=== PATIENT | male | born 1945 | race Caucasian/White ===

== ENCOUNTER → 2019-04-04 09:57 | Outpatient (CLI) | payer MEDICARE | END | disposition home or self-care (01) | LOC: D.HCCARDIO 09:57 | PROVIDERS: ATTEND Internal Medicine Cardiovascular Disease | DX: I35.9 Nonrheumatic aortic valve disorder, unspecified (principal) ==

== ENCOUNTER → 2020-05-07 09:16 | Outpatient (CLI) | payer MEDICARE | END | disposition home or self-care (01) | LOC: D.HCCECHO 09:16 | PROVIDERS: ATTEND Internal Medicine Cardiovascular Disease | DX: I25.10 Atherosclerotic heart disease of native coronary artery without angina pectoris (principal) ==

== ENCOUNTER 2020-06-30 10:54 | Day surgery (SDC) | payer MEDICARE ==
[~2020-06-30] VITALS: Ht 185.4 cm; Wt 93.7 kg
--- NOTE | ~2020-06-30 | HEMODYNAMI ---
PATIENT:GABRIELLA OSBORNE MEDICAL RECORD: [id number] : 43 LOCATION:[facility] ADMISSION DATE: 06/30/20 Generatedon:06/30/202013:28 Patient name: GABRIELLA OSBORNE Patient #: [id number] SSN: [id number] : 1945 Date of study: 06/30/2020 Page: Of Hemodynamic Procedure Report Patient Data Patient Demographics Procedure consent was obtained First Name: GABRIELLA Gender: Male Last Name: DYLON : 1945 [facility] Initial: J Age: 74 year(s) Patient #: [id number] Race: SSN: [id number] Additional ID: [id number] Contact details [address]: [address] [place] [address] State: [place] City: [place] Zip code: [address] Past Medical History Allergies: No known allergies Admission Admission Data Admission Date: 06/30/2020 Admission Time: 10:54 Arrival Date: 06/30/2020 Arrival Time: 0:00 Admit Source: Other Insurance Payor: Medicare [facility] #: [id number] Height (in.): 73 BSA: 2.16 (m2) Height (cm.): 185.42 BMI: 26.65 (kg/m2) Weight (lbs.): 202 Weight (kg.): 91.63 Lab Results Lab Result Date: 06/30/2020 Lab Result Time: 0:00 CBC Name Units Result Min Max Hematocrit % 49.8 --(--*-)-- 42 54 Hemoglobin g/dl 17.2 --(---*)-- 13.5 17.5 Procedure Procedure Types Cath Procedure Diagnostic Procedure Cardioversion External Procedure Description Procedure Date Procedure Date: 06/30/2020 Procedure Start Time: 13:12 Procedure End Time: 13:23 Procedure Staff Name Function Star Fitzpatrick MD Performing Physician Gladys Senior RT Monitor Michelle Neves RT Scrub Jaqueline Denson, RN Nurse Keyur Mendoza CRNA Additional personnel Procedure Data Cath Procedure Estimated blood loss: 0 ml Procedure Complications No complications Procedure Medications Medication Administration Route Dosage Oxygen etCO2 Nasal cannula 2 l/min 0.9% NaCl I.V. 100 ml/hr Refer to Anesthesia Notes for Sedation Medications Hemodynamics Rest BSA: 2.16 (m2) HGB: 17.2 (g/dl) O2 Consumption: Estimated: 236.05 (ml/min) O2 Consumption indexed: Estimated:109.28 (ml/min/m) Heart Rate: 55 (bpm) Snapshots Pre Cath Intra NCS Post Cath Vital Signs Time Heart Resp SPO2 etCO2 NIBP (mmHg) Rhythm Pain Sedation Rate (ipm) (%) (mmHg) Status Level (bpm) 12:35:17 58 23 97 0 149/120(141) NSR 0 (11) 10(A) , No pain 12:39:35 51 19 98 0 170/107(145) NSR 0 (11) 10(A) , No pain 12:44:53 46 17 98 10.4 159/92(104) NSR 0 (11) 10(A) , No pain 12:50:39 50 27 97 20.2 107/92(98) NSR 0 (11) 10(A) , No pain 12:54:38 44 21 99 19.4 113/94(105) NSR 0 (11) 10(A) , No pain 13:05:32 48 11 99 24.6 180/84(136) NSR 0 (11) 10(A) , No pain 13:09:56 54 8 99 22.4 141/118(138) NSR 0 (11) 8(A) , No pain 13:14:51 61 22 95 11.2 152/77(131) NSR 0 (11) 8(A) , No pain 13:22:53 0 86/47(57) NSR 0 (11) 10(A) , No pain 13:27:51 0 139/61(120) NSR 0 (11) 10(A) , No pain Medications Time Medication Route Dose Verified Delivered Reason Notes Effective ness by by 12:40:16 Oxygen etCO2 2 Jaqueline Jaqueline Nasal l/min Janiya Denson cannula RN RN 12:40:28 0.9% NaCl I.V. 100 Jaqueline Jaqueline Per ml/hr Janiya Denson, physician RN RN 12:40:34 Refer to Jaqueline Jaqueline Anesthesia Janiya Denson, Notes for RN RN Sedation Medications Procedure Log Time Note 12::29 Informed consent obtained and on chart 12:02:45 Diagnostic Cath Status : Elective 12:03:01 Arrival Date: 06/30/2020 12:00:00 AM 12:03:02 Admit Source: Other 12:03:28 Insurance Payor : Medicare 12:03:47 Patient Height : 73 inches 12:03:53 Patient Weight : 202 lbs 12:04:21 Patient allergic to No known allergies 12:05:26 ACC Patient presents with Stable Angina CCS Anginal Class 2--Slight limitation of ordinary activity. 12:05:30 Procedure Status Cardioversion. 12:05:32 Time tracking: Regular hours (M-F 7:00 - 5:00) 12:05:37 Plan of Care:Hemodynamics will remain stable., Cardiac rhythm will remain stable., Comfort level will be maintained., Respiratory function will remain adequate., Patient/ family verbilizes understanding of procedure., Procedure tolerated without complication., Recovers from procedure without complications.. 12:05:50 H&P Date Dictated: 06/13/2020 Within 30 days and on chart.. 12:05:51 Pre-procedure instructions explained to patient. 12:05:51 Pre-op teaching completed and patient verbalized understanding. 12:05:54 Family in waiting room. 12:05:56 Patient NPO since Midnight. 12:06:08 Stress Test: no; N/A ? 12:07:10 Lab Result : Hemoglobin 17.2 g/dl 12:07:10 Lab Result : Hematocrit 49.8 % 12:26:29 Lizzy Pearson RN sent for patient. Start room use. 12:29:13 Patient received from Pre/Post Procedure Room to CCL 1 Alert and oriented. Tansferred to table in Supine position. 12:29:35 Warm blankets applied, and irina hugger turned on for patient comfort. 12:29:35 Correct patient and procedure confirmed by team. 12:29:36 ECG and BP/O2 sat monitors applied to patient. 12:29:43 Alarms reviewed by R. N. 12:29:43 Sharps counted by scrub and verified by R.N. 12:29:56 Lab results completed and on chart, pending. 12:30:02 Patient pain scale 0/10 ?. 12:30:10 IV patent on arrival in left antecubital with 0.9% NaCl at [facility]. 12:31:21 Quick Combo opened to sterile field. 12:32:30 Is the patient allergic to Iodine/contrast media? No. 12:32:31 Was the patient premedicated? N/A 12:32:33 Is patient on blood thinner?Yes 12:32:34 ACC The patient was administered the following blood thiners within the last 24 hours: Xarelto 12:32:35 Patient diabetic? No. 12:32:36 If diabetic: On Metformin? N/A 12:32:37 ----Pre-sedation anethsthesia assessment.---- 12:32:41 Previous problem with sedation/anesthesia? No ? 12:32:42 Snore? Yes 12:32:43 Sleep apnea? No 12:32:45 Deviated septum? No 12:32:46 Opens mouth fully? Yes 12:32:47 Sticks out tongue? Yes 12:33:18 Airway obstruction? No ? 12:33:20 Dentures? No ? 12:34:00 Vital chart was started 12:34:01 Full Disclosure recording started 12:34:11 Rhythm: atrial flutter 12:34:13 Baseline sample Acquired. 12:34:38 Procedure delayed due to: waitng on anethesia 12:40:16 Oxygen 2 l/min etCO2 Nasal cannula was administered by Jaqueline Denson RN; ; Verbal order read back and verified. 12:40:28 0.9% NaCl 100 ml/hr I.V. was administered by Jaqueline Denson RN; Per physician; Verbal order read back and verified. 12:40:34 Refer to Anesthesia Notes for Sedation Medications was administered by Jaqueline Denson RN; ; Verbal order read back and verified. 13:00:49 Physician arrived 13:00:52 --------ALL STOP TIME OUT------ 13:00:52 Final Timeout: patient, procedure, and site verified with staff and physician. All members of the team are in agreement. 13:00:58 Physical assessment completed. ASA score P 2 - A patient with mild systemic disease as per tSar Fitzpatrick MD. 13:01:05 Sedation plan: General Anesthesia Medication:Propofol 13:08:49 Keyur Mendoza CRNA present and monitoring patient for TIVA. 13:12:18 Procedure started. 13:13:43 ------Cardioversion------ 13:13:44 Quick combo pads placed on patients chest and back. 13:13:51 Defibrillator synced and charged to 100 Joules. 13:13:53 Shock delivered. 13:13:55 Patient cardioverted to sinus rhythm . 13:14:16 Procedure ended.(Physican Out) 13:14:50 Post Procedure Pulses reassessed and unchanged 13:14:58 Post-procedure physical assessment completed. ASA score P 2 - A patient with mild systemic disease as per Star Fitzpatrick MD. 13:15:01 Post procedure rhythm: sinus rhythm 13:15:06 Estimated blood loss: 0 ml 13:15:11 Post procedure instruction explained to patient.Patient verbalizes understanding. 13:15:12 Patient needs reinforcement of post procedure teaching. 13:15:34 Procedure Complication : No complications 13:15:42 Operative report dictated upon procedure completion. 13:15:42 See physician's report for complete and final results. 13:15:45 Report given to Pre/Post Procedure Room. 13:15:48 Patient transfered to Pre/Post Procedure Room with Stretcher. 13:23:12 Vital chart was stopped 13:23:14 Procedure ended. 13:23:14 Full Disclosure recording stopped 13:23:29 End room use (Document Last) 13:23:59 End room use (Document Last) 13:25:05 End room use (Document Last) Device Usage Item Manufacture Quantity Catalog Hospital Part Current Minimal Lot# / Name Number Charge Number Stock Stock Seri al# Code [employer] 1 [id number] Combo Signature Audit Verbank Stage Time Signature Unsigned Intra-Procedure 06/30/2020 Michelle Neves 1:23:59 PM RT(R) Intra-Procedure 06/30/2020 Jaqueline Denson, 1:25:05 PM RN Intra-Procedure 06/30/2020 Star Fitzpatrick MD 1:28:11 PM [id number] [place] [address]
[2020-06-30] MEDS ORDERED: AVAPRO150 MG PO (11:32)
[2020-06-30] MEDS ORDERED: BETAPACE 80 MG80 MG PO (11:33)
[2020-06-30] MEDS ORDERED: NORVASC2.5 MG PO (11:33)
[2020-06-30] MEDS ORDERED: BAYER CHEWABLE81 MG PO (11:34)
[2020-06-30] MEDS ORDERED: LIPITOR40 MG PO (11:34)
[2020-06-30] MEDS ORDERED: XARELTO15 MG PO (11:34)
[2020-06-30 11:48] VITALS: BP 166/102; Ht 185.4 cm; Wt 93.7 kg
[2020-06-30 11:55] LABS: BASOPHILS 0.1 % (0-2); EOSINOPHILS 2.8 % (0-7); HEMATOCRIT 49.8 % (42.0-54.0); HEMOGLOBIN 17.2 g/dL (13.5-17.5); IMMATURE GRANULOCYTES 0.1 % (0-5); LYMPHOCYTES 16.5 % (15-50); MCH 32.5 pg (26.0-34.0); MCHC 34.5 g/dL (31.0-37.0); MEAN PLATELET VOLUME 11.4 fL (7.4-10.4); MONOCYTES 10.6 % (2-11); NEUTROPHILS 69.9 % (40-80); PLATELET COUNT 108 10x3/uL (130-400); RDW 13.9 % (11.5-14.5); WBC 7.1 10x3/uL (4.8-10.8)
[2020-06-30 12:23] LABS: INR 1.83 (0.85-1.17); PROTIME 20.9 SECONDS (11.6-15.0)
--- NOTE | 2020-06-30 13:30 | NUR ---
PT REC'D TO ROOM 6 VIA STRETCHER FROM RELAY TESTER. MONITORS ESTAB. AT BS. SEE SUPERVISOR SAF[employer]Y DEPOSIT. ALARMS ON AND C/L IN REACH.
--- NOTE | 2020-06-30 13:45 | NUR ---
PT SITTING UP IN BED, VSS. CM - SR WITH PACS. AT BS. DENIES PAIN OR NEEDS. ALARMS ON AND C/L IN REACH.
[2020-06-30 13:48] LABS: CALCIUM 9.1 mg/dL (8.5-10.1); CARBON DIOXIDE 23.3 mmol/L (21.0-32.0); CREATININE - SERUM 1.3 mg/dL (0.6-1.3); POTASSIUM - SERUM 4.3 mmol/L (3.5-5.1)
--- NOTE | 2020-06-30 14:15 | NUR ---
VSS. CM - SR WITH PACS. PT SITTING UP IN BED, GIVEN SANDWICH AND WATER PER REQUEST. ALARMS ON AND C/L IN REACH.
--- NOTE | 2020-06-30 14:30 | NUR ---
ALL DISCHARGE INSTRUCTIONS REVIEWED WITH PT AND , INCLUDING RESTRICTIONS, MEDS AND F/U APPT. BOTH VERBALIZE UNDERSTANDING.
--- NOTE | 2020-06-30 14:45 | NUR ---
CM - SR WITH OCC PAC NOTED. VSS. PIV D/C'D INTACT, DSG APPLIED.
--- NOTE | 2020-06-30 15:15 | NUR ---
PT NOTIFIED OF DR. CONRAD BEING CALLED TO ER, PT REQUESTED TO GO AHEAD AND D/C. PT D/C'D TO PRIVATE VEHICLE WITH ALL PAPERWORK AND BELONGINGS.
== END 2020-06-30 15:15 | disposition home or self-care (01) ==
LOC: D.CATH 10:54
PROVIDERS: ATTEND Internal Medicine Cardiovascular Disease
DX: I48.92 Unspecified atrial flutter (principal); I25.10 Atherosclerotic heart disease of native coronary artery without angina pectoris; I10 Essential (primary) hypertension; I35.1 Nonrheumatic aortic (valve) insufficiency